=== PATIENT | male | born 1960 | race African-American/Black ===

== ENCOUNTER 2020-07-13 07:12 | Emergency (ER) | payer MEDICAID ==
[~2020-07-13] VITALS: Ht 172.7 cm; Wt 80.0 kg
[2020-07-13 07:18] VITALS: BP 104/63
== END 2020-07-13 09:10 | disposition left against medical advice (07) ==
LOC: ER 07:12
DX: S09.8XXA Other specified injuries of head, initial encounter (principal); S02.5XXA Fracture of tooth (traumatic), initial encounter for closed fracture; G89.11 Acute pain due to trauma; Y04.2XXA Assault by strike against or bumped into by another person, initial encounter; Y07.6 Multiple perpetrators of maltreatment and neglect; Y93.89 Activity, other specified; Y92.018 Other place in single-family (private) house as the place of occurrence of the external cause
CPT/HCPCS: 99283

== ENCOUNTER 2020-12-28 22:45 | Emergency (ER) | payer MEDICAID ==
[~2020-12-28] VITALS: Ht 162.6 cm; Wt 68.0 kg
[~2020-12-28 22:45] MED LIST: AMLO5TAB88 MT; KEPP500 MT
[2020-12-28] MEDS ORDERED: LORAZEPAM 1MG TABLET PO ONE (23:15)
[2020-12-28] MEDS ORDERED: OLANZAPINE 10 MG/VIAL IM ONE (23:30)
[2020-12-29 00:43] LABS: BASOPHILS % 0.7 % (0.0-2.0); EOSINOPHILS % 0.1 % (0.0-5.0); HEMATOCRIT. 45.1 % (42.0-52.0); HEMOGLOBIN. 15.3 g/dL (14.0-18.0); LYMPHOCYTES % 9.3 % (20.0-50.0); MEAN CORPUSCULAR HEMOGLOBIN 31.2 pg (28.0-32.0); MEAN PLATELET VOLUME 9.5 fl (7.4-10.4); MONOCYTES % 5.1 % (2.0-8.0); NEUTROPHILS % 84.8 % (40.0-76.0); PLATELET 176 x1000/uL (130-400)
[2020-12-29 00:48] LABS: CHLORIDE 109 mEq/L (98-107)
[2020-12-29 00:53] LABS: ETHANOL BLOOD 10 mg/dL
[2020-12-29 05:25] LABS: CLARITY URINE CLEAR (CLEAR); COLOR URINE YELLOW (YELLOW); KETONES URINE NEGATIVE (NEGATIVE); LEUKOCYTE ESTERASE URINE NEGATIVE (NEGATIVE); NITRITE URINE NEGATIVE (NEGATIVE); OCCULT BLOOD URINE NEGATIVE (NEGATIVE); PH URINE 5.5 (4.5-8.0); PROTEIN URINE NEGATIVE (NEGATIVE); SPECIFIC GRAVITY URINE 1.011 (1.005-1.030); UROBILINOGEN URINE 0.2 E.U./dL (0.2-1.0)
[2020-12-29 05:47] LABS: *AMPHETAMINES SCREEN URINE NEGATIVE (NEGATIVE); *BARBITURATES SCREEN URINE NEGATIVE (NEGATIVE); *BENZODIAZEPINES SCREEN URINE NEGATIVE (NEGATIVE); *COCAINE SCREEN URINE PRESUMTIVE POSITIVE (NEGATIVE); METHADONE URINE SCREEN NEGATIVE (NEGATIVE); OPIATES URINE SCREEN NEGATIVE (NEGATIVE)
[2020-12-29 05:48] LABS: CANNABINOID URINE SCREEN NEGATIVE (NEGATIVE); PHENCYCLIDINE URINE SCREEN NEGATIVE (NEGATIVE)
[2020-12-29] MEDS ORDERED: ARIP2TAB3 MT (16:06)
[2020-12-29] MEDS ORDERED: DIVA250T4 MT (16:06)
[2020-12-29] MEDS ORDERED: SERT25TA74 MT (16:06)
[2020-12-29 16:16] VITALS: BP 138/78
== END 2020-12-29 16:49 | disposition home or self-care (01) ==
LOC: ER 22:45
DX: I10 Essential (primary) hypertension (principal); F17.290 Nicotine dependence, other tobacco product, uncomplicated; F14.10 Cocaine abuse, uncomplicated; Z20.822 Contact with and (suspected) exposure to COVID-19
CPT/HCPCS: 36415; 80053; 80305; 80307; 80320; 80329; 81003; 85025; 87426; 93005; 96372; 99285; C9803; J3490; U0003; U0005; G0480